=== PATIENT | female | born 1975 | race Caucasian/White ===

== ENCOUNTER 2022-11-21 01:28 | Emergency (ER) | payer BC, OTHER ==
[~2022-11-21] VITALS: Ht 162.6 cm; Wt 70.5 kg
[~2022-11-21 01:28] MED LIST: AZIT-83 PO; CALC500T63 PO; CHOL400T32 PO; FERR-119 PO; MULT-1085 PO
[2022-11-21 01:52] VITALS: BP 140/92
[2022-11-21] MEDS ORDERED: ibuprofen tablet 400 MG TABLET PO ONE (02:10)
== END 2022-11-21 02:49 | disposition home or self-care (01) ==
LOC: ER 01:28
DX: S52.501A Unspecified fracture of the lower end of right radius, initial encounter for closed fracture (principal); Z98.890 Other specified postprocedural states; W01.0XXA Fall on same level from slipping, tripping and stumbling without subsequent striking against object, initial encounter; Y93.89 Activity, other specified; Y92.89 Other specified places as the place of occurrence of the external cause; Y99.8 Other external cause status
CPT/HCPCS: 29125; 73110; 99283; A6449